=== PATIENT | male | born 1960 | race Caucasian/White ===

== ENCOUNTER 2023-01-26 11:13 | Observation (INO) | payer OTHER ==
[~2023-01-26] VITALS: Ht 190.5 cm; Wt 78.5 kg
[~2023-01-26 11:13] MED LIST: ALBUTEROL0.63 MG/3 NEB; CLONAZEPAM1 MG PO; DICYCLOMINE HCL20 MG PO; DOXEPIN HCL25 MG PO; GABAPENTIN600 MG PO; HYDROCODON-ACE1 EAC9 PO; LEVOTHYROXINE50 MCG PO; LORATADINE10 MG PO; LOSARTAN-HCTZ1 EACH PO; OMEPRAZOLE40 MG PO
[2023-01-26] MEDS ORDERED: ONDANSETRON HCL INJ 2MG/ML 2ML 2 MG/ML VIAL IV STA (11:21)
[2023-01-26] MEDS ORDERED: SODIUM CHLORIDE 0.9% 1000ML 1,000 ML IV ONE (11:30)
[2023-01-26 11:38] LABS: BASOPHILS % 0.7 % (0.0-1.0); EOSINOPHILS # (AUTO) 0.3 (0.0-0.4); EOSINOPHILS % 4.8 % (0.0-6.0); HEMATOCRIT 44.1 % (38.2-49.6); HEMOGLOBIN 14.7 g/dL (14.0-18.0); LYMPHOCYTES # (AUTO) 1.4 (1.0-3.2); LYMPHOCYTES % 23.3 % (18.0-39.1); MEAN CORPUSCULAR HEMOGLOBIN 29.5 pg (28-32); MEAN CORPUSCULAR HGB CONC 33.3 g/dL (31-35); MEAN CORPUSCULAR VOLUME 88.6 fL (81-99); MONOCYTES # (AUTO) 0.6 (0.2-0.8); MONOCYTES % 9.2 % (4.4-11.3); NEUTROPHILS # (AUTO) 3.8 (2.1-6.9); NEUTROPHILS % 61.7 % (38.7-80.0); PLATELET COUNT 290 x10e3/uL (140-360); RED BLOOD COUNT 4.98 x10e6/uL (4.3-5.7); RED CELL DISTRIBUTION WIDTH 14.9 % (11.7-14.4); WHITE BLOOD COUNT 6.09 x10e3/uL (4.8-10.8)
[2023-01-26 12:32] LABS: ALBUMIN 3.8 g/dL (3.5-5.0); ALBUMIN/GLOBULIN RATIO 1.1 (0.8-2.0); ANION GAP 19.1 mmol/L (8-16); BILIRUBIN,TOTAL 0.6 mg/dL (0.2-1.2); CALCIUM 10.2 mg/dL (8.4-10.2); CREATININE, SERUM 0.86 mg/dL (0.72-1.25); POTASSIUM 4.1 mmol/L (3.5-5.1); TOTAL PROTEIN 7.3 g/dL (6.5-8.1)
[2023-01-26] MEDS ORDERED: HYDROCODONE/APAP 5MG-325MG TAB PO ONE (12:45)
[2023-01-26] MEDS ORDERED: Morphine 2mg Syringe 2 MG/ML SYR IV PRN (14:15)
[2023-01-26] MEDS ORDERED: ONDANSETRON HCL INJ 2MG/ML 2ML 2 MG/ML VIAL IV PRN (14:15)
[2023-01-26] MEDS: SODIUM CHLORIDE 0.9% 1000ML 1,000 ML IV SCH ×2 (14:21→22:15)
[2023-01-26 14:37] LABS: BILIRUBIN,URINE NEGATIVE (NEGATIVE); CLARITY,URINE SL CLOUDY (CLEAR); COLOR,URINE YELLOW (YELLOW); GLUCOSE, URINE NEGATIVE (NEGATIVE); KETONES,URINE NEGATIVE (NEGATIVE); LEUKOCYTE ESTERASE ,URINE TRACE (NEGATIVE); NITRITE,URINE NEGATIVE (NEGATIVE); PH,URINE 6 (5 - 7); PROTEIN,URINE DIPSTICK NEGATIVE (NEGATIVE); URINE UROBILINOGEN 0.2 mg/dL (0.2 - 1)
[2023-01-26 14:59] LABS: BACTERIA,URINE RARE /HPF; RBC,URINE 0-5 /HPF (0-5)
[2023-01-26] MEDS ORDERED: ACETAMINOPHEN 650 MG SUPP PR PRN (15:00)
[2023-01-26] MEDS ORDERED: HYDRALAZINE HCL 20 MG/ML VIAL IV PRN (15:00)
[2023-01-26 15:46] VITALS: BP 171/90; PULSE 59; RESP 20; TEMP 98.4; O2SAT 96
[2023-01-26 15:57] VITALS: BP 171/90; PULSE 59; RESP 20; TEMP 98.4; O2SAT 96
[2023-01-26 16:01] VITALS: BP 171/90; PULSE 59; RESP 20; TEMP 98.4; O2SAT 96
[2023-01-26 17:50] VITALS: BP 148/78
[2023-01-26] MEDS ORDERED: CARAFATE1 GM/10 ML PO (18:01)
[2023-01-26] MEDS ORDERED: LORATADINE10 MG PO (18:01)
[2023-01-26] MEDS ORDERED: METOCLOPRAMIDE10 MG PO (18:01)
[2023-01-26] MEDS ORDERED: HYDROCODON-ACE1 EAC8 PO (18:01)
[2023-01-26] MEDS ORDERED: PANTOPRAZOLE SO40 MG PO (18:01)
[2023-01-26] MEDS ORDERED: LATANOPROST2.5 ML OP (18:55)
[2023-01-26] MEDS ORDERED: BRIMONIDINE TART5 ML OP (18:55)
[2023-01-26 20:00] VITALS: BP 151/99; PULSE 69; RESP 18; TEMP 98.5; O2SAT 95
[2023-01-26 21:00] VITALS: BP 151/99; PULSE 69; RESP 18; TEMP 98.5; O2SAT 95
[2023-01-26] MEDS ORDERED: LEVOTHYROXINE SODIUM 100 MCG/VIAL IV SCH (21:00)
[2023-01-26] MEDS ORDERED: METOCLOPRAMIDE HCL 10 MG/2ML VIAL IV ONE (21:00)
[2023-01-26] MEDS: HYDROMORPHONE 1MG/1ML INJ IV PRN (22:21)
[2023-01-27] MEDS: HYDROCODONE/APAP 10MG-325MG TAB PO SCH ×4 (00:07→18:09)
[2023-01-27 00:51] VITALS: BP 141/84; PULSE 67; RESP 17; TEMP 98.4; O2SAT 93
[2023-01-27] MEDS: HYDROMORPHONE 1MG/1ML INJ IV PRN ×4 (02:31→20:10)
[2023-01-27 05:36] VITALS: BP 128/83; PULSE 64; RESP 20; TEMP 97.7; O2SAT 92
[2023-01-27] MEDS: METOCLOPRAMIDE HCL 10 MG/2ML VIAL IV SCH ×3 (06:07→18:09)
[2023-01-27] MEDS: SODIUM CHLORIDE 0.9% 1000ML 1,000 ML IV SCH ×3 (06:07→20:11)
[2023-01-27 06:46] LABS: BASOPHILS # (AUTO) 0.1 (0.0-0.1); BASOPHILS % 0.8 % (0.0-1.0); EOSINOPHILS # (AUTO) 0.3 (0.0-0.4); EOSINOPHILS % 5.2 % (0.0-6.0); HEMOGLOBIN 14.3 g/dL (14.0-18.0); LYMPHOCYTES # (AUTO) 1.5 (1.0-3.2); LYMPHOCYTES % 23.9 % (18.0-39.1); MEAN CORPUSCULAR HEMOGLOBIN 29.2 pg (28-32); MEAN CORPUSCULAR HGB CONC 32.5 g/dL (31-35); MONOCYTES # (AUTO) 0.8 (0.2-0.8); MONOCYTES % 11.8 % (4.4-11.3); NEUTROPHILS # (AUTO) 3.7 (2.1-6.9); NEUTROPHILS % 58.1 % (38.7-80.0); PLATELET COUNT 276 x10e3/uL (140-360); RED BLOOD COUNT 4.89 x10e6/uL (4.3-5.7); RED CELL DISTRIBUTION WIDTH 14.9 % (11.7-14.4); WHITE BLOOD COUNT 6.37 x10e3/uL (4.8-10.8)
[2023-01-27 07:19] LABS: ALBUMIN 3.4 g/dL (3.5-5.0); ALBUMIN/GLOBULIN RATIO 1.2 (0.8-2.0); BILIRUBIN,TOTAL 0.7 mg/dL (0.2-1.2); CALCIUM 9.3 mg/dL (8.4-10.2); CREATININE, SERUM 0.81 mg/dL (0.72-1.25); TOTAL PROTEIN 6.3 g/dL (6.5-8.1)
[2023-01-27 07:34] LABS: MAGNESIUM 1.8 MG/DL (1.3-2.1); PHOSPHORUS 3.1 MG/DL (2.3-4.7)
[2023-01-27 09:11] VITALS: BP 131/93; PULSE 65; RESP 19; TEMP 98.1; O2SAT 97
[2023-01-27] MEDS ORDERED: CLONAZEPAM 1 MG TAB PO PRN (12:15)
[2023-01-27 12:20] VITALS: BP 152/92; PULSE 70; RESP 19; TEMP 98.7; O2SAT 95
[2023-01-27] MEDS ORDERED: LEVOTHYROXINE SODIUM 50 MCG TAB PO SCH (14:00)
[2023-01-27 18:24] VITALS: BP 146/88; PULSE 61; RESP 20; TEMP 97.9; O2SAT 95
[2023-01-27 20:00] VITALS: BP 143/93; PULSE 71; RESP 20; TEMP 98.2; O2SAT 95
== END 2023-01-27 21:18 | disposition left against medical advice (07) ==
LOC: ER 11:20 → ERHOLD 14:09 → MED/SURG2 15:33
PROVIDERS: ADMIT Internal Medicine; ATTEND Internal Medicine
DX: K28.9 Gastrojejunal ulcer, unspecified as acute or chronic, without hemorrhage or perforation (principal); K21.00 Gastro-esophageal reflux disease with esophagitis, without bleeding; U07.1 COVID-19; K44.9 Diaphragmatic hernia without obstruction or gangrene; Z98.84 Bariatric surgery status; Z53.29 Procedure and treatment not carried out because of patient's decision for other reasons; I10 Essential (primary) hypertension; E03.9 Hypothyroidism, unspecified; N20.0 Calculus of kidney; G89.4 Chronic pain syndrome; F17.200 Nicotine dependence, unspecified, uncomplicated; Z71.6 Tobacco abuse counseling; Z79.899 Other long term (current) drug therapy
CPT/HCPCS: 36415 ×2; 74176; 80053 ×2; 81001; 83690; 83735; 84100; 85025 ×2; 87086; 99284; C9113 ×2; G0378 ×2; J0360; J1170 ×2; J2270; J2405; J2543 ×2; J2765 ×2; J7030 ×2; U0002